=== PATIENT | male | born 1965 | race Caucasian/White ===

== ENCOUNTER → 2020-10-17 09:39 | Outpatient (BNVA) | payer OTHER, SELFPAY | PROVIDERS: Family Provider Family Medicine; PCP Family Medicine; Visit Provider Nurse Practitioner Family | DX: Z12.5 Encounter for screening for malignant neoplasm of prostate (principal); E78.1 Pure hyperglyceridemia; Z12.11 Encounter for screening for malignant neoplasm of colon; N52.9 Male erectile dysfunction, unspecified; Z00.00 Encounter for general adult medical examination without abnormal findings | CPT/HCPCS: 80053; 80061; 85025; G0103 ==

== ENCOUNTER 2021-03-26 08:49 | Day surgery (SDC) | payer OTHER, SELFPAY ==
--- NOTE | 2021-03-26 09:16 | ANES.PREANE2 ---
Pre-Anesthetic Assessment Pre-Anesthetic Assessment: Height/Weight: Height 1.71 m Proposed Procedure: Operation Date: 03/26/21 10:30 Proposed Procedures p Colonoscopy 96798 Z12.11(Not Applicable) - Ravin Au MD Was Beta Deena taken within 24 hours: N/A Was Clonidine taken within 24 hours: N/A Social: Social History: No alcohol and No tobacco Exam: Pre-Anes Outpt Exam: alert, oriented x 3, clear to auscultation bilaterally and regular rate & rhythm Airway: Submandibular: WNL Cervical ROM: WNL MP: 2 Dentition: Full History/ROS: No significant history except as noted Metabolic: Metabolic: Hyperlipidemia Anesthetic Plan: ASA status: 2 Anesthesia: MAC Risk of > 500 ml blood loss (7ml/kg in children): No PFSH Anesthesia PFSH: Family History Mother Cancer Father Diabetes Social History Smoking and tobacco status: never smoked Second hand smoke exposure: No Smoking risk assessment/counseling performed?: No Alcohol intake: never Desire information about alcohol rehabilitation?: No Counseling given: No Desire information about substance/drug rehabilitation?: No Counseling given: No Adopted: No Caregiver/support person: No Lives independently: Yes Household members: spouse Housing: House Marital status: Number of children: 7 Highest education level completed: Associate Degree: Academic Program service: Yes Current occupational status: employed Pets and animals: No History of recent travel: No Data Anesthesia Cardiac Studies: No Data to Display
[2021-03-26 10:11] VITALS: BP 124/95; PULSE 56; RESP 18; TEMP 36.2; O2SAT 100; BMI 25.7
[2021-03-26] MEDS: sodium chloride 0.9% 1,000 ML 30 ML IV (10:17)
--- NOTE | 2021-03-26 10:40 | W.PM.OPSFHP ---
Same Day Surgery H&P Indication for Procedure/HPI DATE OF PROCEDURE: March 26, 2021 CHIEF COMPLAINT/INDICATIONFOR SURGICAL PROCEDURE: Screening colonoscopy PREOP DIAGNOSIS: Screening colonoscopy PLANNED PROCEDRUE: Operation Date: 03/26/21 10:30 Proposed Procedures p Colonoscopy 39882 Z12.11(Not Applicable) - Ravin Au MD This is a pleasant 55 years old gentleman referred to my practice for screening colonoscopy, patient never had a colonoscopy before and denies any bleeding per rectum or colon cancer history. ROS All systems have been reviewed negative except as per the above or per problem list Medications/Allergies* Home Medications Medication Instructions Recorded Confirmed Type multivitamin [Multi-Day] 1 tab PO DAILY 03/26/21 03/26/21 History Allergies/Adverse Reactions Allergy/AdvReac Type Severity Reaction Status Date / Time Iodinated Contrast Media Allergy Severe Burning, Verified 03/26/21 10:41 vomiting, and heart rate increase Current Medications: Generic Name Dose Route Start Last Admin Trade Name Freq PRN Reason Stop Dose Admin Sodium Chloride 1,000 mls @ 30 mls/hr 03/26/21 09:00 03/26/21 10:17 Sodium Chloride 0.9% IV 03/27/21 08:59 30 mls/hr .Q24H JENNIFER Administration Pertinent History/Comorbid Conditions* Family History (Updated 10/17/20 @ 09:08 by Annika Bertrand LPN) Diabetes Father Cancer Mother Social History Smoking and tobacco status: never smoked Second hand smoke exposure: No Smoking risk assessment/counseling performed?: No Alcohol intake: never Desire information about alcohol rehabilitation?: No Counseling given: No Desire information about substance/drug rehabilitation?: No Counseling given: No Adopted: No Caregiver/support person: No Lives independently: Yes Household members: spouse Housing: House Marital status: Number of children: 7 Highest education level completed: Associate Degree: Academic Program service: Yes Current occupational status: employed Pets and animals: No History of recent travel: No Pertinent Exam Findings alert, oriented x 3, clear to auscultation bilaterally, regular rate & rhythm and procedure specific exam findings (Abdominal examination nontender nondistended soft) Recommendations Surgery/Procedure today (Colonoscopy) Other Plans: Plan of care; After thorough history and physical examination and reviewing the chart, plan to perform screening colonoscopy. I discussed with the patient in details the risks,benefits,alternatives and indications.The risk of aspiration, bleeding, soft tissue injury, perforation of the colon and other potential concomitant complications were explained to the patient in details,also the potential need for Laproscoy/Laparotomy to repair any related complications including but not limited to colectomy and or Closotomy.The patient understood this well and did agree to proceed. Rationale was carefully and clearly discussed with the patient.Appropriate informed consent have been reviewed and signed All questions have been answered and all concerns have been addressed to patient's satisfaction. Verbal and written Instructions were given to the patient for colonoscopy prep Coding Level of Care Code Acute Customer Development Manager for Susi Nguyen
[2021-03-26 10:59] VITALS: BP 91/66; PULSE 67; RESP 16; TEMP 36.9; O2SAT 95
[2021-03-26 11:19] VITALS: BP 99/71; PULSE 61; RESP 18; O2SAT 97
--- NOTE | 2021-03-26 17:08 | ANE.PACU2 ---
Inpatient post-anesthesia follow up: Airway intact: Yes Vital signs: Temperature 98.5 F Pulse Rate 61 Respiratory Rate 18 Blood Pressure 99/71 Pulse Oximetry 97 Oxygen Delivery Me thod Room Air Oxygen Flow Rate Fraction of Inspir ed Oxygen Hydration adequate: Yes Nausea and vomiting: No Pain level: 1 Mental status: Baseline
== END 2021-03-26 11:30 | disposition home or self-care (01) ==
PROVIDERS: PCP Nurse Practitioner Family; Visit Provider Surgery
PROC: 0DJD8ZZ Inspection of Lower Intestinal Tract, Via Natural or Artificial Opening Endoscopic (ICD-10-PCS; CPT 45378; principal; 2021-03-26 10:30)
DX: Z12.11 Encounter for screening for malignant neoplasm of colon (principal); Z83.3 Family history of diabetes mellitus
CPT/HCPCS: 45378; 96360; J2704; J7030

== ENCOUNTER → 2021-06-30 09:12 | Outpatient (BNVA) | payer OTHER, SELFPAY | PROVIDERS: PCP Nurse Practitioner Family; Visit Provider Nurse Practitioner Family | DX: M79.671 Pain in right foot; M79.672 Pain in left foot; R10.32 Left lower quadrant pain | CPT/HCPCS: 80053; 85025; 86618; 86666; 86757 ==

== ENCOUNTER → 2021-10-27 08:26 | Outpatient (BNVA) | payer OTHER, SELFPAY | PROVIDERS: PCP Nurse Practitioner Family; Referring Provider Nurse Practitioner Family; Visit Provider Podiatrist Foot & Ankle Surgery | DX: M19.071 Primary osteoarthritis, right ankle and foot (principal); M79.671 Pain in right foot | CPT/HCPCS: 73630 ==

== ENCOUNTER 2022-02-17 11:34 | Outpatient (CLI) | payer OTHER, SELFPAY | END 2022-02-17 11:35 | disposition home or self-care (01) | LOC: SPT 12:09 | PROVIDERS: PCP Nurse Practitioner Family; Visit Provider Podiatrist Foot & Ankle Surgery | DX: Z46.89 Encounter for fitting and adjustment of other specified devices (principal); M72.2 Plantar fascial fibromatosis; M20.21 Hallux rigidus, right foot | CPT/HCPCS: 97760; L3030 ==

== ENCOUNTER → 2022-03-10 08:34 | Outpatient (BNVA) | payer OTHER, SELFPAY | PROVIDERS: PCP Nurse Practitioner Family; Visit Provider Nurse Practitioner Family | DX: E78.1 Pure hyperglyceridemia (principal) | CPT/HCPCS: 80053; 80061; 85025 ==

== ENCOUNTER → 2022-10-27 10:21 | Outpatient (BNVA) | payer OTHER, SELFPAY | PROVIDERS: PCP Nurse Practitioner Family; Visit Provider Nurse Practitioner Family | DX: E78.1 Pure hyperglyceridemia (principal); N52.9 Male erectile dysfunction, unspecified; R05.3 Chronic cough | CPT/HCPCS: 71046 ==

== ENCOUNTER → 2022-11-16 09:13 | Outpatient (BNVA) | payer OTHER, SELFPAY | PROVIDERS: PCP Nurse Practitioner Family; Visit Provider Nurse Practitioner Family | DX: M25.442 Effusion, left hand (principal) | CPT/HCPCS: 73130 ==

== ENCOUNTER → 2023-02-19 08:03 | Outpatient (BNVA) | payer OTHER, SELFPAY | PROVIDERS: PCP Clinical Nurse Specialist Adult Health; Visit Provider Clinical Nurse Specialist Adult Health | DX: Z00.00 Encounter for general adult medical examination without abnormal findings (principal); E78.1 Pure hyperglyceridemia; N52.9 Male erectile dysfunction, unspecified; L98.9 Disorder of the skin and subcutaneous tissue, unspecified | CPT/HCPCS: 80053; 80061; 84443; 85025 ==

== ENCOUNTER → 2023-07-27 09:15 | Outpatient (BNVA) | payer OTHER, SELFPAY | PROVIDERS: PCP Clinical Nurse Specialist Adult Health; Visit Provider Student in an Organized Health Care Education/Training Program | DX: M25.561 Pain in right knee (principal); G89.29 Other chronic pain | CPT/HCPCS: 73560; 73565 ==

== ENCOUNTER 2023-10-07 19:50 | Emergency (ER) | payer OTHER, SELFPAY ==
[2023-10-07 19:51] VITALS: BP 132/91; PULSE 72; RESP 18; TEMP 37.6; O2SAT 92; BMI 27.1
[2023-10-07 19:56] VITALS: BP 118/71; PULSE 73; RESP 14; O2SAT 93
--- NOTE | 2023-10-07 19:59 | W.ED.BACK ---
HPI - Back Pain/Injury General: Chief Complaint: Back Pain/Injury Stated Complaint: Lower back pain Time Seen by Provider: 10/07/23 19:59 History of Present Illness: 58-year-old male patient comes in today with low back pain for the last 2 to 3 days. Patient reports his back was bothering him yesterday morning and he worked outside a little bit but not any heavy lifting or labor. Today when patient woke up his he was stiff in his lower back and could not move. Patient is having difficulty getting up out of bed and walking. Patient appears nontoxic. Patient appears in moderate pain. Review of Systems General: Reports: 10 or more systems reviewed and unremarkable except in HPI and below Musc: Reports: back pain PFSH ED PFSH: Medical History (Updated 10/07/23 @ 21:13 by ARCHANA Osborne) Right knee DJD Screen for colon cancer 2021, clear Hx of hyperlipidemia Surgical History Hx of knee surgery left Hx of tonsillectomy Family History Mother Cancer Father Diabetes Social History Smoking and tobacco/nicotine status: never used tobacco/nicotine Second hand smoke exposure: No Alcohol intake: never Substance/Drug Use: never Adopted: No Caregiver/support person: No Lives independently: Yes Household members: spouse Housing: House Marital status: Number of children: 7 Highest education level completed: Associate Degree: Academic Program service: Yes Current occupational status: employed Pets and animals: No Current gender identity: Male Physical Exam Const: COMMON NORMALS: alert HENMT: COMMON NORMALS: normocephalic HEAD & SCALP: normocephalic Neck/C-Spine: COMMON NORMALS: full ROM Resp: COMMON NORMALS: normal respiratory effort and clear to auscultation bilaterally AUSCULTATION: clear to auscultation bilaterally Cardio: COMMON NORMALS: regular rate and regular rhythm RATE: regular rate RHYTHM: regular rhythm GI: COMMON NORMALS: non-tender Back/Pelvis: LUMBAR SPINE/LOWER BACK: Yes lumbar spinal tenderness Lumbar spinal tenderness location: L5 and Yes paraspinal muscle tenderness Lumbar paraspinal muscle tenderness: left Extremity: COMMON NORMALS: normal to inspection Neuro: SENSORIUM/ORIENTATION: Yes alert Skin: COMMON NORMALS: turgor normal GENERAL SKIN EXAM: turgor normal Course Vital Signs: Vital signs: Vital Signs Temperature 99.7 F H 10/07/23 19:51 Pulse Rate 71 10/07/23 20:58 Respiratory Rate 15 10/07/23 20:58 Blood Pressure 126/82 10/07/23 21:10 Pulse Oximetry 94 10/07/23 21:10 Oxygen Delivery Me thod Room Air 10/07/23 21:10 MDM - Back Pain/Injury Medical Decision Making 58-year-old male patient comes in today with complaints of back pain and stiffness. Patient reports difficulty with ambulation due to the low back pain. Patient appears nontoxic. Patient appears in no acute distress. Patient does appear in moderate to severe pain. On exam abdomen soft nontender. Lungs clear to auscultation. Vital signs are normal except for temperature of 99.7. Distal pulses and sensation are intact. Differential diagnosis includes not limited to intervertebral disc disease, facet arthritis, discitis, lumbar strain. CBC and CMP were unremarkable. CT of the lumbar spine noted a sclerotic lesion to the lumbar 2 vertebrae atypical for degenerative sclerosis but raising concerns for neoplastic lesion including metastasis recommending PSA and bone scan. I reviewed this abnormality with patient. I have placed a consult and referral to Dr. Baltazar's office the area oncologist. Also noted on the CT scan was multilevel degenerative findings with some neuronal foraminal narrowing at L4-L5. Patient reported understanding. And will follow-up with primary care and environmental remediation specialist as ordered. Labs 10/07/23 20:23 10/07/23 20:23 Radiology Impressions Lumbar Spine CT 10/07/23 20:05 IMPRESSION: 1. Sclerosis within the anteroinferior aspect of the L2 vertebral body, atypical appearance for degenerative sclerosis and raising concern for neoplastic lesion including metastasis. Recommend correlation with PSA and bone scan. 2. Multilevel degenerative findings as above with severe left neural foraminal narrowing at L4-L5. Laboratory Results WBC 8.36 10^3/uL (3.29-11.43) 10/07/23 20:23 RBC 4.58 10^6/uL (3.85-5.65) 10/07/23 20:23 Hgb 14.30 g/dL (11.27-16.99) 10/07/23 20: Hct 40.1 % (37-53) 10/07/23 20: MCV 87.6 fl (82-101) 10/07/23 20: MCH 31.2 pg (27-33) 10/07/23 20: MCHC 35.7 g/dL (30-55) 10/07/23 20: RDW 12.8 % (12.1-15.1) 10/07/23 20: Plt Count 206 10^3/cmm (157-399) 10/07/23 20: MPV 10.1 fL (7.4-10.4) 10/07/23 20: Neut % (Auto) 73.0 % 10/07/23 20: Lymph % (Auto) 16.0 % 10/07/23 20: [place] % (Auto) 9.8 % 10/07/23 20: Eos % (Auto) 0.4 % 10/07/23 20: Baso % (Auto) 0.4 % 10/07/23 20: Neut # (Auto) 6.11 10^3/uL (1.8-7.7) 10/07/23 20: Lymph # (Auto) 1.3 10^3/uL (0.8-4.8) 10/07/23 20: [place] # (Auto) 0.8 10^3/uL (0.2-0.9) 10/07/23 20: Eos # (Auto) 0.0 10^3/uL (0.0-0.8) 10/07/23 20: Baso # (Auto) 0.0 10^3/uL (0.0-0.1) 10/07/23 20: Nucleated RBC % (auto) 0 % 10/07/23: Nucleated RBCs # 0.0 /100WBC 10/07/23 20: ESR < 1 mm/hr (0-10) 10/07/23 20:23 Sodium 144 mmol/L (136-145) 10/07/23 20:23 Potassium 3.8 mmol/L (3.5-5.1) 10/07/23 20: Chloride 106 mmol/L (98-107) 01/25/24 20:23 Carbon Dioxide 25 mmol/L (22-29) 10/07/23 20:23 Anion Gap 16.8 (5-19) 10/07/23 20:23 BUN 24 mg/dL (6-20) H 10/07/23 20:23 Creatinine 1.3 mg/dL (0.7-1.2) H 10/07/23 20:23 GFR Calculation 56.7 mL/min (90-130) L 10/07/23 20:23 Glucose 115 mg/dL (65-115) 10/07/23 20:23 Calculated Osmolality 303 mOsm/kg (285-295) H 10/07/23 20:23 Calcium 9.8 mg/dL (8.5-10.5) 10/07/23 20:23 Total Bilirubin 0.5 mg/dL (0.15-1.2) 10/07/23 20:23 AST 22 U/L (0-40) 10/07/23 20:23 ALT 25 U/L (0-41) 10/07/23 20:23 Alkaline Phosphatase 61 U/L (40-130) 10/07/23 20:23 C-Reactive Protein 23.4 mg/L (0.0-4.9) H 10/07/23 20:23 Total Protein 6.7 g/dL (6.6-8.7) 10/07/23 20:23 Albumin 4.4 g/dL (3.5-5.2) 10/07/23 20:23 Globulin 2.3 g/dL (1.3-4.6) 10/07/23 20:23 All radiology interpretation(s) finalized by discharge Discharge Plan Discharge Patient Disposition: Home Clinical Impression: Lumbar radiculopathy, Lesion of lumbosacral vertebra Condition: Stable Prescriptions: New celecoxib 200 mg capsule 200 mg PO BID Qty: 20 0RF prednisone 20 mg tablet 20 mg PO BID 5 Days Qty: 10 0RF hydrocodone-acetaminophen 5-325 mg tablet 1 tab PO Q6H PRN (Reason: pain) Qty: 10 0RF No Action albuterol sulfate 90 mcg/actuation HFA aerosol inhaler 2 puff inhalation QID PRN (Reason: shortness of breath or wheezing) Qty: 6.7 0RF fluticasone propionate [Flovent HFA] 110 mcg/actuation HFA aerosol inhaler 2 puff inhalation BID Qty: 12 2RF loratadine [Claritin] 10 mg tablet 10 mg PO DAILY fluticasone propionate 50 mcg/actuation spray,suspension 1 spray intranasal DAILY Rx Instructions: administer into each nostril sildenafil [Viagra] 100 mg tablet 100 mg PO DAILY PRN (Reason: sexual activity) 90 Days Qty: 30 3RF fenofibrate nanocrystallized [Tricor] 145 mg tablet 145 mg PO DAILY 90 Days Qty: 90 3RF omeprazole magnesium [Prilosec OTC] 20 mg tablet,delayed release (DR/EC) 20 mg PO DAILY Qty: 30 0RF naproxen sodium [Flanax (naproxen)] 220 mg tablet 220 mg PO BID PRN (Reason: pain) Qty: 60 0RF (DME) sole supports See Rx Instructions .Route .MEDSUPPLY Qty: 1 0RF Rx Instructions: As directed multivitamin Tablet 1 tab PO DAILY Discharge Orders: Discharge ED (Routine); Ordered 10/07/23 Ordered By: Abhishek Hurt Referrals: Flako Flower [facility]OCIATE [Primary Care Provider] - Discharge Diet: Usual diet Discharge Activity: Increase activity as tolerated Patient Instructions: Acute Low Back Pain (ED) Activity Restrictions/Additional Instructions: Follow-up with primary care for further evaluation and treatment of low back pain and abnormal CT scan. I have placed to case management referrals for you. [address] Baltazar our oncologist to review the CT report and make suggestions for further evaluation of the lesion that was noted on your lumbar vertebra #2. I have also made a referral to Dr. Robledo our orthopedic quality control specialist for further evaluation relating that foraminal stenosis of your low back. Take medications as directed for pain and inflammation. Drink plenty of water and fluids with medication. Return to ED for worsening symptoms such as high fever, inability to hold fluids down, inability to control your bladder or bowel. Coding Level of Care Code ED Assembler Plastic Boat for Susi Nguyen
--- NOTE | 2023-10-07 20:05 | CTR_ITS ---
PROCEDURE INFORMATION: Exam: CT Lumbar Spine Without Contrast Exam date and time: 10/07/2023 8:12 PM Age: 58 years old Clinical indication: Low back pain; Additional info: Severe pain, no injury TECHNIQUE: Imaging protocol: Computed tomography of the lumbar spine without contrast. Radiation optimization: All CT scans at this facility use at least one of these dose optimization techniques: automated exposure control; mA and/or kV adjustment per patient size (includes targeted exams where dose is matched to clinical indication); or iterative reconstruction. COMPARISON: No relevant prior studies available. RADIATION DOSE METRICS: Total DLP (mGy-cm): 644 FINDINGS: Bones/joints: Sclerosis within the anteroinferior aspect of the L2 vertebral body. Mild bilateral sacroiliac joint osteoarthrosis. No acute fracture or malalignment of the lumbar spine. Vertebral body heights are maintained. Mild multilevel degenerative disc disease primarily within endplate osteophyte formation. Mild central canal stenosis at L4-L5 secondary to posterior disc osteophyte complex and ligamentum flavum hypertrophy. Severe left neural foraminal narrowing at L4-L5. Moderate left neural foraminal narrowing at L5-S1. Soft tissues: Subtle regional soft tissue swelling location of sclerotic lesion at L2.. CT/CT lumbar spine wo con* [id number] IMPRESSION: 1. Sclerosis within the anteroinferior aspect of the L2 vertebral body, atypical appearance for degenerative sclerosis and raising concern for neoplastic lesion including metastasis. Recommend correlation with PSA and bone scan. 2. Multilevel degenerative findings as above with severe left neural foraminal narrowing at L4-L5.
[2023-10-07] MEDS: dexamethasone 10 mg/mL INJ IVP (20:21)
[2023-10-07 20:31] LABS: Basophils % 0.4 %; Eosinophils % 0.4 %; Hematocrit 40.1 % (37-53); Lymphocytes # 1.3 10^3/uL (0.8-4.8); Mean Corpuscular HGB Conc 35.7 g/dL (30-55); Mean Corpuscular Hemoglobin 31.2 pg (27-33); Mean Corpuscular Volume 87.6 fl (82-101); Mean Platelet Volume 10.1 fL (7.4-10.4); Monocytes # 0.8 10^3/uL (0.2-0.9); Monocytes % 9.8 %; Neutrophils # 6.11 10^3/uL (1.8-7.7); Nucleated Red Blood Cells % 0 %; Platelet Count 206 10^3/cmm (157-399); Red Blood Count 4.58 10^6/uL (3.85-5.65); Red Cell Distribution Width 12.8 % (12.1-15.1); White Blood Count 8.36 10^3/uL (3.29-11.43)
[2023-10-07 20:34] LABS: Erythrocyte Sedimentation Rate < 1 mm/hr (0-10)
[2023-10-07 20:55] LABS: Alanine Aminotransferase 25 U/L (0-41); Albumin Level 4.4 g/dL (3.5-5.2); Alkaline Phosphatase 61 U/L (40-130); Anion Gap 16.8 (5-19); Aspartate Amino Transferase 22 U/L (0-40); Blood Urea Nitrogen 24 mg/dL (6-20); C Reactive Protein 23.4 mg/L (0.0-4.9); Calcium 9.8 mg/dL (8.5-10.5); Carbon Dioxide 25 mmol/L (22-29); Chloride 106 mmol/L (98-107); Globulin 2.3 g/dL (1.3-4.6); Glomerular Filtration Rate 56.7 mL/min (90-130); Glucose 115 mg/dL (65-115); Osmolality Calculated 303 mOsm/kg (285-295); Potassium 3.8 mmol/L (3.5-5.1); Sodium 144 mmol/L (136-145); Total Bilirubin 0.5 mg/dL (0.15-1.2); Total Protein 6.7 g/dL (6.6-8.7)
[2023-10-07 20:58] VITALS: BP 121/77; PULSE 71; RESP 15; O2SAT 94
[2023-10-07 21:10] VITALS: BP 126/82; O2SAT 94
[2023-10-07 21:29] VITALS: BP 148/96; PULSE 79; O2SAT 95
[2023-10-07] MEDS: HYDROcodone-acetaminophen 7.5-325 mg Tablet 1 TAB PO (21:39)
[2023-10-07 21:43] LABS: Prostate Specific Antigen 0.562 ng/mL (0-4)
--- NOTE | 2023-10-08 01:30 | DCPLANNER ---
Message sent to Oncology for a follow up possible metastatic lesion-Spine
--- NOTE | 2023-10-08 01:33 | DCPLANNER ---
Message sent to Ortho for a referral - lumbar radiculopathy-
== END 2023-10-07 21:43 | disposition home or self-care (01) ==
PROVIDERS: Emergency Provider Nurse Practitioner Family; PCP Clinical Nurse Specialist Adult Health
DX: M54.16 Radiculopathy, lumbar region (principal); M48.8X7 Other specified spondylopathies, lumbosacral region; E78.5 Hyperlipidemia, unspecified
CPT/HCPCS: 72131; 80053; 84153; 85025; 85651; 86140; 96374; 99285; J1100

== ENCOUNTER 2023-10-14 14:22 | Outpatient (CLI) | payer OTHER, SELFPAY ==
--- NOTE | 2023-10-14 14:30 | MR_ITS ---
WS: [id number] MRI LUMBAR SPINE WITH CONTRAST TECHNIQUE: Sagittal T1, T2 and STIR imaging. Axial T1 and T2 imaging. Post gadolinium imaging was obt ained. CLINICAL INFORMATION: ABNORMAL CT WITH POSSIBLE SCLEROTIC LESION COMPARISON: CT 10/07/2023 FINDINGS: Mild lumbar curve. No acute compression. No high-grade central canal stenosis. Again seen is the scle rotic lesion previously described on the CT anterior L2 vertebral body. This demonstrates mild edema and enhancement most compatible with degenerative endplate type change. This abuts the anterior endpl ate in a symmetric fashion and adjacent disc space. Small amount of surrounding inflammation likely d egenerative/inflammatory. Metastatic disease less likely. Anterior hypertrophic changes at this level. L1-L2: Normal. L2-L3: Mild disc bulging with slight effacement of the ventral thecal sac. Moderate facet arthropathy . Spinal canal and foramen are patent. L3-L4: Mild annular bulging. Moderate facet arthropathy. Slight narrowing LEFT subarticular recess. S soila canal and foramen are patent. L4-L5: Mild annular bulging. Slight effacement of the ventral thecal sac. Slight impingement traversi ng L5 nerve roots. Moderate facet arthropathy. Mild LEFT and no significant RIGHT foraminal narrowing . L5-S1: Mild disc bulging with slight impingement traversing LEFT S1 nerve root. Spinal canal is paten t. Mild facet arthropathy. Foramen are patent. Small bilateral renal cysts. Visualized pelvic bony structures: Normal. Paravertebral soft tissues: Normal. IMPRESSION: 1. Previously described lesion anterior endplate L2 is most likely degenerative as it abuts the ante rior endplate and disc space. Metastatic disease less likely. Associated enhancement likely reactive. If clinical suspicion or persistent concern for metastatic disease, then recommend bone scan in fur ther evaluation of the bony structures. 2. Mild annular bulging L2-3 and L3-4 with slight narrowing of the subarticular recess. No high-grad e central canal stenosis. 3. Disc bulge L4-5 with slight impingement traversing L5 nerve roots bilaterally. 4. Mild LEFT L4-5 foraminal narrowing. 5. Mild annular bulging L5-S1 slightly impinges the LEFT S1 nerve root. 6. Moderate facet arthropathy L3-L4 and L4-L5.
[2023-10-14] MEDS: gadobenate dimeglumine 20 mL vial IV (15:24)
== END 2023-10-14 14:23 | disposition home or self-care (01) ==
LOC: RAD 14:23
PROVIDERS: PCP Clinical Nurse Specialist Adult Health; Visit Provider Clinical Nurse Specialist Adult Health
DX: M89.9 Disorder of bone, unspecified (principal); R93.7 Abnormal findings on diagnostic imaging of other parts of musculoskeletal system; M51.37 Other intervertebral disc degeneration, lumbosacral region; M48.07 Spinal stenosis, lumbosacral region; M47.817 Spondylosis without myelopathy or radiculopathy, lumbosacral region
CPT/HCPCS: 72100; 72158; A9577

== ENCOUNTER → 2023-10-19 11:01 | Outpatient (BNVA) | payer OTHER, SELFPAY | PROVIDERS: PCP Clinical Nurse Specialist Adult Health; Visit Provider Orthopaedic Surgery | DX: M54.50 Low back pain, unspecified (principal) | CPT/HCPCS: 99214 ==

== ENCOUNTER → 2023-11-15 10:21 | Outpatient (BNVA) | payer OTHER, SELFPAY | PROVIDERS: PCP Clinical Nurse Specialist Adult Health; Visit Provider Anesthesiology Pain Medicine | DX: R68.89 Other general symptoms and signs (principal); M51.16 Intervertebral disc disorders with radiculopathy, lumbar region; M47.816 Spondylosis without myelopathy or radiculopathy, lumbar region | CPT/HCPCS: 20553; 99204; J1030; J3490 ==

== ENCOUNTER → 2023-12-06 12:17 | Outpatient (BNVA) | payer OTHER, SELFPAY | PROVIDERS: PCP Clinical Nurse Specialist Adult Health; Visit Provider Anesthesiology Pain Medicine | DX: M54.16 Radiculopathy, lumbar region (principal) | CPT/HCPCS: 64483; 64484; J1100; J3490 ==

== ENCOUNTER → 2023-12-28 09:58 | Outpatient (BNVA) | payer OTHER, SELFPAY | PROVIDERS: PCP Clinical Nurse Specialist Adult Health; Visit Provider Anesthesiology Pain Medicine | DX: Z03.89 Encounter for observation for other suspected diseases and conditions ruled out (principal); M51.16 Intervertebral disc disorders with radiculopathy, lumbar region; M47.816 Spondylosis without myelopathy or radiculopathy, lumbar region; M48.061 Spinal stenosis, lumbar region without neurogenic claudication | CPT/HCPCS: 99215 ==

== ENCOUNTER 2024-01-20 08:16 | Outpatient (CLI) | payer OTHER, SELFPAY ==
--- NOTE | 2024-01-20 08:00 | NM_ITS ---
WS: [id number] NUCLEAR MEDICINE WHOLE BODY BONE SCAN HISTORY: Z03.89 - Encounter for observation for other suspected di... COMPARISON: MRI lumbar spine 10/14/2023 TECHNIQUE: The patient was injected with 22.1 mCi of Technetium 99m HDP and serial whole-body scintig oscar have been performed with anterior and posterior images. Moderate increased uptake throughout the L2 vertebral body. This corresponds to the MRI findings. The extent of involvement appears more significant as compared to the MRI of 10/14/2023. There are no david tional suspicious lesions throughout the spine or ribs. Advanced degenerative changes at the AC joints and knee joints. Marked increase uptake involving the RIGHT first metatarsal head. Additional focal area of increased uptake in the cervical spine on the R IGHT involving facet joint, probably C5. Soft tissue and renal uptake is normal. NM/NM bone scan whole body* [id number] IMPRESSION: 1. Diffuse uptake within the L2 vertebral body. This is the vertebral body pre viously described on MRI and radiograph as abnormal. The extent of involvement appears more significant by bone scan imaging than on the MRI. This may be due to progression of fracture. If pain is continuing metastatic disease or mild os teomyelitis should be considered. 2. There are no additional areas of increased uptake in the bony skeleton whic h would suggest metastatic disease. Recommendation: As the involvement of L2 appears more diffuse than expected in correlation with the radiograph and MRI, recommend short-term imaging follow-up if patient's pain is continuing. Probably the most helpful reevaluation would be MRI lumbar spine with and without contrast. Prior MRI was 3 months ago. If p atient's pain is persisting it may be of benefit within the next few weeks to r epeat the MRI.
== END 2024-01-20 08:17 | disposition home or self-care (01) ==
LOC: RAD 08:17
PROVIDERS: PCP Clinical Nurse Specialist Adult Health; Visit Provider Anesthesiology Pain Medicine
DX: Z03.89 Encounter for observation for other suspected diseases and conditions ruled out (principal)
CPT/HCPCS: 78306; A9561

== ENCOUNTER → 2024-02-03 13:28 | Outpatient (BNVA) | payer OTHER, SELFPAY | PROVIDERS: PCP Clinical Nurse Specialist Adult Health; Visit Provider Anesthesiology Pain Medicine | DX: M47.816 Spondylosis without myelopathy or radiculopathy, lumbar region (principal) | CPT/HCPCS: 64493; 64494; 64495; J3490 ==

== ENCOUNTER → 2024-02-09 10:44 | Outpatient (BNVA) | payer OTHER, SELFPAY | PROVIDERS: PCP Clinical Nurse Specialist Adult Health; Visit Provider Anesthesiology Pain Medicine | DX: M51.16 Intervertebral disc disorders with radiculopathy, lumbar region; M47.816 Spondylosis without myelopathy or radiculopathy, lumbar region | CPT/HCPCS: 99214 ==

== ENCOUNTER → 2024-02-14 13:24 | Outpatient (BNVA) | payer OTHER, SELFPAY | PROVIDERS: PCP Clinical Nurse Specialist Adult Health; Visit Provider Anesthesiology Pain Medicine | DX: M47.816 Spondylosis without myelopathy or radiculopathy, lumbar region (principal) | CPT/HCPCS: 64635; 64636; J1010 ==

== ENCOUNTER → 2024-05-26 09:26 | Outpatient (BNVA) | payer OTHER, SELFPAY | PROVIDERS: PCP Clinical Nurse Specialist Adult Health; Visit Provider Student in an Organized Health Care Education/Training Program | DX: M25.561 Pain in right knee (principal); G89.29 Other chronic pain; M17.11 Unilateral primary osteoarthritis, right knee | CPT/HCPCS: 73560; 73565 ==

== ENCOUNTER → 2024-08-21 08:03 | Outpatient (BNVA) | payer OTHER, SELFPAY | PROVIDERS: PCP Clinical Nurse Specialist Adult Health; Visit Provider Clinical Nurse Specialist Adult Health | DX: N18.31 Chronic kidney disease, stage 3a (principal); N52.9 Male erectile dysfunction, unspecified; E78.1 Pure hyperglyceridemia | CPT/HCPCS: 80053; 80061; 84443; 85025 ==

== ENCOUNTER → 2024-11-03 15:17 | Outpatient (BNVA) | payer OTHER, SELFPAY | PROVIDERS: PCP Clinical Nurse Specialist Adult Health; Visit Provider Physician Assistant | DX: M25.561 Pain in right knee (principal); G89.29 Other chronic pain; M17.11 Unilateral primary osteoarthritis, right knee | CPT/HCPCS: 73560; 73565 ==

== ENCOUNTER → 2025-02-16 10:57 | Outpatient (BNVA) | payer OTHER, SELFPAY | PROVIDERS: PCP Clinical Nurse Specialist Adult Health; Visit Provider Physician Assistant | DX: M25.562 Pain in left knee (principal); M17.12 Unilateral primary osteoarthritis, left knee; M25.561 Pain in right knee; G89.29 Other chronic pain | CPT/HCPCS: 73560; 73565 ==

== ENCOUNTER 2025-07-27 08:25 | Outpatient (CLI) | payer OTHER, SELFPAY ==
[2025-07-27 08:53] LABS: Hematocrit 42.4 % (37-53); Hemoglobin 14.90 g/dL (11.27-16.99); Mean Corpuscular HGB Conc 35.1 g/dL (30-55); Mean Corpuscular Hemoglobin 31.3 pg (27-33); Mean Corpuscular Volume 89.1 fl (82-101); Nucleated Red Blood Cells % 0 %; Platelet Count 221 10^3/cmm (157-399); Red Blood Count 4.76 10^6/uL (3.85-5.65); White Blood Count 3.46 10^3/uL (3.29-11.43)
[2025-07-27 08:54] LABS: Glucose Urine UA Negative (Normal); Nitrate Urine Negative (Negative); Specific Gravity, Urine 1.012 (1.005-1.030)
[2025-07-27 09:02] LABS: Add Urine Microscopic? YES
[2025-07-27 09:30] LABS: Alanine Aminotransferase 29 U/L (0-41); Albumin Level 4.5 g/dL (3.5-5.2); Alkaline Phosphatase 63 U/L (40-130); Anion Gap 13.9 (5-19); Aspartate Amino Transferase 32 U/L (0-40); Blood Urea Nitrogen 39 mg/dL (8-23); Calcium 9.5 mg/dL (8.5-10.5); Carbon Dioxide 28 mmol/L (22-29); Chloride 105 mmol/L (98-107); Globulin 2.4 g/dL (1.3-4.6); Glucose 83 mg/dL (65-115); Osmolality Calculated 305 mOsm/kg (285-295); Potassium 3.9 mmol/L (3.5-5.1); Sodium 143 mmol/L (136-145); Total Protein 6.9 g/dL (6.6-8.7)
== END 2025-07-27 08:26 | disposition home or self-care (01) ==
PROVIDERS: PCP Clinical Nurse Specialist Adult Health; Visit Provider Student in an Organized Health Care Education/Training Program
DX: Z01.818 Encounter for other preprocedural examination (principal)
CPT/HCPCS: 36415; 80053; 81001; 85025

== ENCOUNTER 2025-08-10 08:19 | Outpatient (CLI) | payer OTHER, SELFPAY ==
--- NOTE | 2025-08-10 08:30 | CT_ITS ---
WS: [id number] CT RIGHT KNEE, NONCONTRAST [facility] TECHNIQUE: Noncontrast CT of the RIGHT knee to include the RIGHT hip and ankle. CLINICAL INFORMATION: M17.11 - Unilateral primary osteoarthritis, right knee DLP: 1022.[address] scans at [facility] use at least one of these dose optimization techniques: automated exposure control; mA and/or kV adjustment per patient size (includes targeted exams where dose is matched to clinical indication); or iterative reconstruction. FINDINGS: Advanced tricompartmental arthritis RIGHT knee. Hypertrophic patella. Moderate suprapatellar effusion with calcified loose bodies. Hypertrophic changes along the joint line. Vascular calcification. Moderate arthritis sacroiliac joints. Prostate enlargement measuring 4.1 cm. Recommend correlation PSA. CT/CT knee RT [facility] [id number] IMPRESSION: Images obtained for preoperative purposes.
== END 2025-08-10 08:20 | disposition home or self-care (01) ==
LOC: RAD 08:20
PROVIDERS: PCP Clinical Nurse Specialist Adult Health; Visit Provider Student in an Organized Health Care Education/Training Program
DX: M17.11 Unilateral primary osteoarthritis, right knee (principal); M79.4 Hypertrophy of (infrapatellar) fat pad; N40.0 Benign prostatic hyperplasia without lower urinary tract symptoms; M25.461 Effusion, right knee; M23.41 Loose body in knee, right knee; M61.461 Other calcification of muscle, right lower leg
CPT/HCPCS: 73700

== ENCOUNTER → 2025-08-13 10:03 | Outpatient (BNVA) | payer OTHER, SELFPAY | PROVIDERS: PCP Clinical Nurse Specialist Adult Health; Visit Provider Clinical Nurse Specialist Adult Health | DX: Z00.00 Encounter for general adult medical examination without abnormal findings (principal); E78.1 Pure hyperglyceridemia; N18.31 Chronic kidney disease, stage 3a; I12.9 Hypertensive chronic kidney disease with stage 1 through stage 4 chronic kidney disease, or unspecified chronic kidney disease | CPT/HCPCS: 80061; G0103 ==

== ENCOUNTER 2025-08-16 18:29 | Observation (INO) | payer OTHER, SELFPAY ==
[2025-08-16] VITALS (21 sets, daily range): BP systolic 66–137; BP diastolic 37–93; PULSE 52–74; RESP 14–16; TEMP 36.2–36.3; O2SAT 96–100; BMI 25.3
[2025-08-16] MEDS: acetaminophen 1,000 MG/100 ML PIGGYBACK 400 MG IV ×2 (14:09→21:48)
--- NOTE | 2025-08-16 14:18 | SUR.PREOP ---
TORADOL 30mg HELD PER Dr Urbina.
[2025-08-16 14:52] LABS: Hematocrit 47.8 % (37-53); Hemoglobin 16.80 g/dL (11.27-16.99); Mean Corpuscular HGB Conc 35.1 g/dL (30-55); Mean Corpuscular Hemoglobin 30.8 pg (27-33); Mean Corpuscular Volume 87.7 fl (82-101); Nucleated Red Blood Cells % 0 %; Platelet Count 235 10^3/cmm (157-399); Red Blood Count 5.45 10^6/uL (3.85-5.65); White Blood Count 6.18 10^3/uL (3.29-11.43)
[2025-08-16 15:07] LABS: Anion Gap 16.7 (5-19); Blood Urea Nitrogen 33 mg/dL (8-23); Calcium 9.9 mg/dL (8.5-10.5); Carbon Dioxide 26 mmol/L (22-29); Chloride 103 mmol/L (98-107); Glucose 77 mg/dL (65-115); Osmolality Calculated 300 mOsm/kg (285-295); Potassium 3.7 mmol/L (3.5-5.1); Sodium 142 mmol/L (136-145)
--- NOTE | 2025-08-16 15:14 | P.ANESASSM_ITS ---
Pre-Anesthetic Assessment Height/Weight: Height 1.7 m Weight 73.482 kg Temp Pulse Resp BP Pulse Ox O2 Del Method 97.2 F L 58 L 16 131/93 99 Room Air 08/16/25 13:29 08/16/25 13:29 08/16/25 13:29 08/16/25 13:29 08/16/25 13:29 08/16/25 13:34 Operation Date: 08/16/25 14:20 Proposed Procedures p RIGHT Meng Robot Total Knee Arthroplasty(Right) - Hiren Lizarraga DO Familial anesthetic complications: none Was Beta Deena taken within 24 hours: N/A Was Clonidine taken within 24 hours: N/A Last intake: Intake Last Liquid Date 08/16/25 Last Liquid Time 07:50 Last Solid Date 08/15/25 Last Solid Time 20:30 Social No alcohol and No tobacco Exam alert, oriented x 3, clear to auscultation bilaterally and regular rate & rhythm Airway Mallampati: Class II Dentition: full CV/HEM Hypertension Chronic Renal Insufficiency Anesthetic Plan ASA status: 1 Anesthesia: General Risk of > 500 ml blood loss (7ml/kg in children): No Medications/Allergies Home Medications ?Medication ?Instructions ?Recorded ?Confirmed ?Last Taken ?Type fenofibrate nanocrystallized 145 145 mg PO DAILY 90 da ys #90 tabs 08/13/25 08/15/25 08/15/25 Rx mg tablet (Tricor) Allergies Allergy/AdvReac Type Severity Reaction Status Date / Time Iodinated Contrast Media Allergy Severe Burning, Verified 08/15/25 08:56 vomiting, and heart rate increase PFS Anesthesia Medical History (Updated 08/13/25 @ 16:28 by Flako Flower NP) Stage 3a chronic kidney disease (CKD) Erectile dysfunction, unspecified erectile dysfunction type Generalized osteoarthritis Right knee DJD Screen for colon cancer 03/2021, clear Hx of hyperlipidemia Surgical History Hx of knee surgery left Hx of tonsillectomy Family History Mother Cancer Father Diabetes Social History Smoking and tobacco/nicotine status: never used tobacco/nicotine Second hand smoke exposure: No Alcohol intake: never Substance/Drug Use: never Adopted: No Caregiver/support person: No Lives independently: Yes Household members: spouse Housing: House Marital status: Number of children: 7 Highest education level completed: Associate Degree: Academic Program service: Yes Current occupational status: employed Pets and animals: No Current gender identity: Male Data Anesthesia 08/16/25 13:55 08/16/25 13:55 Short CBC 08/16/25 Range/Units 13:55 WBC 6.18 (3.29-11.43) 10^3/uL Hgb 16.80 (11.27-16.99) g/dL Hct 47.8 (37-53) % MCV 87.7 (82-101) fl Plt Count 235 (157-399) 10^3/cmm Neut % (Auto) 69.4 % Neut # (Auto) 4.29 (1.8-7.7) 10^3/uL BMP 08/16/25 13:55 Sodium 142 Potassium 3.7 Chloride 103 Carbon Dioxide 26 Creatinine 1.2 Glucose 77 Calcium 9.9
--- NOTE | 2025-08-16 15:16 | ANES.PROC ---
Anesthesia Procedures Procedure/Date: 08/16/25 Nerve Block ^: Nerve Block 1: Main Anesthesia: spinal anesthesia block Time Out Performed: Yes Consent: requested by attending/covering physician, from patient, from other, risks and benefits reviewed and patient agrees to proceed Laterality: Right Nerve block location: adductor canal (R) Anesthesia monitors applied: pulse oximetry, EKG, BP cuff and oxygen Nerve block position: supine Anesthetic Used: ropivicaine 0.5% (30 ml) and with decadron (4 mg) Ultrasound used to: recognize landmarks, visualize and ID brachial plexus and visualize and ID femerol nerve Nerve Stimulator Used?: No Interscalene/Femoral BLK: 4 stimuplex 21 g needle used for position and inplane approach, visualize local anesthetic spread and no vascular puncture identified Injection: neg aspiration of heme Patient Tolerated Procedure: well Complications: none
--- NOTE | 2025-08-16 15:39 | SUR.PREOP ---
14:45 right leg adducter nerve block performed by Dr Lane using 30ml of 0.5% ropivacaine with decadron 4mg. Pt on presales senior specialist showing NSR. Pt tolerated procedure well
--- NOTE | 2025-08-16 15:40 | W.PM.OPSUD ---
Surgery/Procedure H&P Update DATE OF PROCEDURE: August 16, 2025 DATE H&P PERFORMED: 07/24/25 H&P UPDATE INFORMATION: I have reviewed H&P completed within last 30 days, I have examined patient prior to procedure and No changes to prior documentation CHANGES TO PREVIOUS DOCUMENTATION: Patient has severe right knee degenerative joint disease underwent the preoperative clearance process and cleared the preoperative clearance process no changes to health since last office visit and ready proceed with surgical intervention please refer to preoperative anesthetic evaluation for heart and lung findings. Patient understands the ins and outs of procedure the risk benefits complication alternatives with surgical nonsurgical treatment options. Understanding risk of surgery patient elects proceed with surgical intervention for a right total knee arthroplasty?Meng robotic assisted. All questions answered at this time. PREOP DIAGNOSIS: Right knee DJD PRIMARY INDICATION FOR PROCEDURE: Right knee DJD PLANNED PROCEDURE: Operation Date: 08/16/25 14:20 Proposed Procedures p RIGHT Meng Robot Total Knee Arthroplasty(Right) - Hiren Lizararga DO
[2025-08-16] MEDS: ceFAZolin 2,000 MG in sodium chloride 0.9% (plus) 50 ML 100 MG IV (16:12)
[2025-08-16] MEDS: tranexamic acid 1,000 mg/10mL SDV 1000 MG IV (16:19)
[2025-08-16] MEDS: ROPivacaine 0.2% Premix 100 mL 200 MG INTRA-ARTI (17:08)
[2025-08-16] MEDS: tranexamic acid 1,000 mg/10mL SDV 1000 MG XX (17:11)
--- NOTE | 2025-08-16 18:20 | P.BOP_ITS ---
Date of Procedure: 08/16/25 Surgeon: Hiren Lizarraga DO Treating Plant Supervisor(s): Mirza Lizarraga PA-C Procedure(s) performed: Right total knee arthroplasty?Meng robotic assisted Findings of the procedure(s): Patient underwent procedure as planned without issues or complications taken to recovery in stable condition Estimated blood loss: 25 mL Specimen(s) removed: Tibia femur and patellar bone cuts removed Post-operative diagnosis: Right knee degenerative joint disease
--- NOTE | 2025-08-16 18:21 | P.OP_ITS ---
Operative Report Date of procedure: August 16, 2025 Surgeon: Hiren Lizarraga DO Paper Cone Machine Tender: Mirza Lizarraga PA-C: PA was necessary for assistance in this case with leg positioning retraction and protection of neurovascular structures as well as assistance in implantation wound closure and dressing application. Procedure: Preoperative diagnosis: Right knee degenerative joint disease Post-op diagnosis: Same Procedure done: Right total knee arthroplasty, cemented?robotic assisted Ronen Implants: Noris triathlon size 5 femur CR cemented?Right Noris triathlon size? 4 tibia universal baseplate cemented [place] triathlon symmetric patella size 33 mm Noris triathlon polyethylene 9mm Surgeon: Hiren Lizarraga DO Estimated blood?loss: 25 mL Tourniquet 65min IV fluids: 1000 mL Urine output: 100 mL Complications: None Condition: stable Disposition: floor Brief History: Patient is a 60-year-old male with with chronic?Right knee degenerative joint disease.? Patient has been worked up in the outpatient setting in the orthopedic office at this point time through shared decision making given? [id number] arthritis as well as failed conservative treatment, and pt would?like to proceed with a?Right total knee arthroplasty.? Through shared decision making elected to proceed with surgical intervention for?Right total knee arthroplasty-ronen robotic assisted.? We talked about continued conservative treatment and surgical intervention as far as the risk benefits complications alternatives surgical and nonsurgical treatment options.? At this point time understanding patient risks with surgery he agrees to proceed with surgical intervention.? Once again? risk with surgery include but are not?limited to make it better make it worse blood clot, heart attack, stroke, on the table, infection, injury to nerves or vessels, persistent pain, arthrofibrosis, implant failure.? Understanding these risks patient agrees to proceed with surgical intervention consent was obtained in the preop.? All questions answered. Procedure: Patient was seen and evaluated in the preoperative holding area.? Consent was reviewed and signed with patient with plan for?Right total knee arthroplasty.? All questions answered.? Correct extremity marked.? Patient seen and evaluated by the anesthesia department and once cleared for surgery was taken back to the operative suite.? Patient was placed into a supine position on the OR table.? All bony prominences were well-padded.? Patient was appropriately secured to the bed.? Patient underwent anesthesia per the anesthesia department.? Patient received anesthesia and? Thomas catheter was placed.? A nonsterile tourniquet was applied to the?Right thigh.? At this point in time a final timeout performed.? Patient received appropriate preoperative antibiotics and TXA. Next the?Right?lower extremity was then prepped and draped in standard orthopedic fashion. Esmarch tourniquet was used exsanguinate the?Right?lower extremity.? Tourniquet was insufflated to 250 mmHg. A standard anterior incision was made over midline of the knee.? Sharp scalpel excision through skin and subcutaneous tissue full-thickness skin flaps were ma de.? Fascia was elevated off of the extensor retinaculum was stable with medial parapatellar arthrotomy was then made.? The performed standard sequential releases..? Immediately on entry into the joint patient was found to have severe eburnated bone and tricompartmental arthritic changes noted.? With significant osteophyte formation.? Next the the patella was then stuffed and the knee was then flexed.?? Chantel was placed superiorly around the anterior aspect of the femur this was freed of synovium and I subsequently then placed by 2 femur pins to establish my femur arrays for the Ronen robot.? These were then placed bicortically and? femur array was then appropriately secured with appropriate visualization.? Next attention was turned towards the tibial rays.? These were then drilled dylan carvalho bicortically in parallel fashion and intraincisional.? I then placed my guide as well as my tibial array on in place.? This was appropriately secured and had excellent visualization with the Ronen robot.? Next the tibial checkpoint as well as femur checkpoint were then placed.? At this point time I then subsequently established my head center as well as my medial?lateral malleoli as well as my checkpoints.? Next utilizing standard Ronen technology I then mapped out the appropriate points and confirmation points around the femur as well as the tibia in standard fashion.? Once this was then done I then removed all osteophytes in preparation for dynamic testing.? All osteophytes were removed as well as I removed the ACL and the PCL was excised due to its significant tearing and degeneration noted.? At this point time the knee was brought into full extension and we performed our standard evaluation of our gap balancing stressing his?ligaments and extension as well as flexion appropriate adjustments were made to have appropriate gap balancing in both flexion and extension.? This plan for final cuts were made to correct patient's deformity to patient's ligamentous tolerances. We get a preoperative plan evaluating our implants which was a size 5 femur and a size 4 tibia.? Next we brought in the Ronen robot and sequentially made our femur cuts.? All excess bony cuts were then removed.? Finally we made our tibial cut.? Once this was done a standard PCL retractor was then placed into this position I excised the medial and?lateral meniscus.? The tibial cut was then subsequently removed all excess bony debris was removed.? I then utilized a?lamina furnace cleaner and remove the posterior osteophytes.? At this point time sized the tibia and confirmed this was a size 4.? I utilized our blunt probe to establish rotation of tibial implant.? Once this was done I then placed my tibia size 4 trial in appropriate position and then subsequently placed tibial pins to hold this into place and trialed up to a size 9 mm poly as well as a size 5 femur which was appropriately impacted in place knee was then subsequently brought into extension. Trials were then assessed,? this was stable with varus valgus stress in extension as well as had symmetrical translation when brought into flexion demonstrating symmetrical gaps. I had excellent balance gaps in flexion and extension with varus and valgus stresses.? At this point I was satisfied with these implants these were then verified and opened on the back table size 4tibia, size 5 femur,? size 9 mm polythickness.? We did confirm appropriate gap balancing and stresses as well as alignment utilizing? Ronen and were satisfied with this plan.? ?At this point time with my trials in place I then towel clip the patella everted this made appropriate measurements subsequently utilizing freehand technique performed by patellar resurfacing this was confirmed to be appropriate resection and subsequently sized to be a 33 mm symmetric.? My drill peg guides were then clamped and appropriate position and appropriate position in the patella for appropriate tracking and parallel with the joint.? Pegs were drilled trial implant was placed and the knee was then subsequently ranged and found to have excellent patellar tracking.? Femur pegs were then drilled.? At this point time all of our trial implants were removed.? All checkpoints as well as guidepins and arrays were removed and appropriate counts made.? Satisfied with our tibial placement rotation I then utilized the keel punch and prepped the tibia.? The wound bed? was thoroughly irrigated and dried and prepped for cementation.? Cement was mixed on the back table.? Once cement was ready this was then covered onto the tibia and the tibial baseplate was then impacted and all excess cement was removed.? Next the polyethylene was then impacted into place on the tibial baseplate.? Next cement was placed onto the femur as well as under the femur implants and impacted in to place and all excess cement was extruded and removed.? Knee was taken into full extension? to clear all excess cement was removed.? Warm saline was placed over the joint.? I then towel clip patella and dried for cementation. cemented the patella into place.? This was all clamped and the cement was allowed to cure.? Thorough irrigation performed with pulse?lavage.? I then placed my periarticular injection while the cement was curing.? Once cured the knee was taken through range of motion and had excellent stability and gaps were balanced in flexion and extension.? Tourniquet was then deflated. hemostasis satisfactory with electrocautery.? Next I then subsequently closed the capsule with Ethibond suture as well as a running strata fix suture.? Knee was then taken through range of motion 30 times.? Next the skin was then closed in?layered fashion of running stratifix sutures of deep and subcutenous tissue and skin.? Closed in flexion skin was closed with lurdes, incision was covered with Silverlon, with ABDs soft roll and Regan wrap.? Patient was then awakened from anesthesia and taken to PACU in stable condition. Disposition: Patient taken to PACU in stable condition will be admitted to the floor for pain control PT/OT weight-bear as tolerated?Right?lower extremity dressing changes as needed, DVT prophylaxis. Pain control. Patient will receive appropriate postoperative antibiotics. Patient will follow up with the office in 2 weeks.? Patient understands agrees with current plan.? All questions answered.
--- NOTE | 2025-08-16 18:25 | XRR_ITS ---
PROCEDURE INFORMATION: Exam: XR Right Knee Exam date and time: 08/16/2025 7:33 PM Age: 60 years old Clinical indication: Screening exam; Post op; Prior surgery; Surgery date: Post-operative (0-2 days); Surgery type: Tka; Additional info: Status post right total knee arthroplasty TECHNIQUE: Imaging protocol: Radiologic exam of the right knee. Views: 3 views. COMPARISON: CT knee RT [facility] [id number] 08/10/2025 8:45 AM FINDINGS: Bones/joints: There is a total knee arthroplasty prosthesis in place. There is air within the knee joint. The femoral and tibial components of the prosthesis are well aligned. Soft tissues: Normal. XR/XR knee RT 3V* [id number] IMPRESSION: Postoperative total knee arthroplasty. There is air within the knee joint.
--- NOTE | 2025-08-16 19:32 | ANE.PACU2 ---
Inpatient post-anesthesia follow up: Airway intact: Yes Vital signs: Temperature 97.4 F Pulse Rate 66 Respiratory Rate 16 Blood Pressure 101/60 Pulse Oximetry 96 Oxygen Delivery Me thod Room Air Oxygen Flow Rate 8 Fraction of Inspir ed Oxygen Hydration adequate: Yes Nausea and vomiting: No Pain level: 1 Mental status: Baseline
[2025-08-16] MEDS: oxyCODONE 5 mg IR Tab/Cap PO (19:56)
[2025-08-16] MEDS: artificial tears Op Oint 3.5 gm 1 APPLIC EYE-RIGHT (20:18)
[2025-08-16] MEDS: ondansetron 2 mg/ML SDV 2 mL 4 MG IVP (22:18)
[2025-08-17] VITALS (11 sets, daily range): BP systolic 104–139; BP diastolic 51–78; PULSE 58–78; RESP 14–18; TEMP 36.6; O2SAT 96–100
[2025-08-17] MEDS: ceFAZolin 2,000 MG in sodium chloride 0.9% (plus) 50 ML 100 MG IV ×3 (00:06→15:36)
[2025-08-17] MEDS: chlorhexidine gluconate 0.12% Btl 473 mL 30 ML MUCOUS MEM ×3 (00:06→10:37)
[2025-08-17] MEDS: tranexamic acid 1,000 MG/100 ML PREMIX 600 MG IV (01:31)
[2025-08-17] MEDS: oxyCODONE 5 mg IR Tab/Cap PO ×4 (01:35→15:41)
[2025-08-17] MEDS: multivitamin therapeutic Tablet 1 TAB PO (05:44)
[2025-08-17] MEDS: calcium carb-vit d 600mg/400unit 1 Tablet 1 EACH PO (05:44)
[2025-08-17] MEDS: sennosides-docusate Tablet 2 TAB PO (05:44)
[2025-08-17] MEDS: mupirocin oint 22 gm 1 APPLIC NASAL (05:45)
[2025-08-17] MEDS: acetaminophen 1,000 MG/100 ML PIGGYBACK 400 MG IV ×2 (05:46→14:49)
[2025-08-17 06:42] LABS: Hematocrit 34.8 % (37-53); Hemoglobin 12.10 g/dL (11.27-16.99); Mean Corpuscular HGB Conc 34.8 g/dL (30-55); Mean Corpuscular Hemoglobin 30.6 pg (27-33); Mean Corpuscular Volume 88.1 fl (82-101); Nucleated Red Blood Cells % 0 %; Platelet Count 202 10^3/cmm (157-399); Red Blood Count 3.95 10^6/uL (3.85-5.65); White Blood Count 11.61 10^3/uL (3.29-11.43)
[2025-08-17 07:00] LABS: Anion Gap 14.6 (5-19); Blood Urea Nitrogen 31 mg/dL (8-23); Calcium 8.6 mg/dL (8.5-10.5); Carbon Dioxide 23 mmol/L (22-29); Chloride 105 mmol/L (98-107); Glucose 241 mg/dL (65-115); Osmolality Calculated 302 mOsm/kg (285-295); Potassium 3.6 mmol/L (3.5-5.1); Sodium 139 mmol/L (136-145)
--- NOTE | 2025-08-17 09:30 | PC.OT ---
Pt seen from 09:15 to 9:21 am sitting in chair at bedside. Pt is A+OX3 and reports a little bit of pain in R LE. Pt independently dons and doffs socks on bilateral LE. Pt declines to perform ADLs. No OT indicated.
[2025-08-17] MEDS: APIXABAN 2.5 MG TABLET PO (11:03)
--- NOTE | 2025-08-17 13:33 | P.CONIM_ITS ---
Providers/Reason For Consult 2 Consulting Physician/Specialty*: Orthopedic Surgery. Dr. Lizarraga. Reason for Consult*: Evaluaton for acute kidney injury. Requesting Physician: Dr. Hiren Lizarraga DO Attending Physician: Hiren Lizarraga DO Primary Care Provider: Flako Flower History of Present Illness History of Present Illness Jayce Garg is a 60 year old male with HTN, CKD 3A, dyslipidemia, lumbar disc disease and chronic severe right knee degenerative joint disease. He has failed conservative treatment options and now elected to proceed with surgical management. He underwent a right Meng robotic assisted cemented total knee arthroplasty performed by Dr. Hiren Lizarraga on 08/16/2025. Procedure proceeded as planned without intraoperative complications. Intraoperative EBL 25 to 50 mL. Hospitalist service consulted for evaluation of acute kidney injury. Patient seen today for post-operative evaluation following knee surgery yesterday. Patient has a history of chronic kidney disease with baseline creatinine of 1.2-1.4 since at least 2020. He was previously evaluated by a salvage engineering technician in [facility]. Notes a brother who is a surgeon who has also been monitoring his renal function. Reports previously taking Aleve, but denies any recent NSAID use. Denies urinary symptoms and decrease in urine output. Previously on BP pills, however has been off for several months after having initiated an exercise routine and lost weight. Home BP runs 125-130/80-85. Denies history of diabetes. Keep self adequtely hydrated Record reviewed Labs 08/17/2025 0630 Hemogram WBC 11.61 RBC 3.95 PLT 202 HGB 12.10 HCT 34.8 Chemistry Na 139 K3.6 Cl 105 Ca 8.6 Glu 241 CO2 23 AG 14.6 BUN 31 Cr 1.4 eGFR 51.7 VSS XR Knee. Bones/joints: There is a total knee arthroplasty prosthesis in place. There is air within the knee joint. The femoral and tibial components of the prosthesis are well aligned. Soft tissues: Normal. Acute kidney injury. Review of Systems 2 General: Reports: 10 or more systems reviewed and unremarkable except in HPI and below Medications/Allergies Home Medications ?Medication ?Instructions ?Recorded ?Confirmed ?Last Taken ?Type fenofibrate nanocrystallized 145 145 mg PO DAILY 90 da ys #90 tabs 08/13/25 08/15/25 08/15/25 Rx mg tablet (Tricor) oxycodone 5 mg tablet 5 mg PO Q6H PRN pain postop 7 days 08/17/25 Unknown Rx #28 tabs Allergies Allergy/AdvReac Type Severity Reaction Status Date / Time Iodinated Contrast Media Allergy Severe Burning, Verified 08/15/25 08:56 vomiting, and heart rate increase Current Medications Generic Name Dose Route Start Last Admin Trade Name Freq PRN Reason Stop Dose Admin Apixaban 2.5 mg 08/17/25 09:00 08/17/25 11:03 Apixaban 2.5 Mg Tablet PO 2.5 mg BID@0900,2100 JENNIFER Administration Artificial Tears 1 applic 08/16/25 19:00 08/17/25 08:12 Artificial Tears Op Oint 3.5 Gm EYE-RIGHT Not Given BEDTIME [facility] Calcium Carbonate 1 each 08/17/25 05:00 08/17/25 05:44 Calcium Carb-Vit D 600mg/400unit 1 Tablet PO 1 each BID JENNIFER Administration Chlorhexidine Gluconate 30 ml 08/16/25 23:00 08/17/25 10:37 Chlorhexidine Gluconate 0.12% Btl 473 Ml MUCOUS MEM 30 ml QID JENNIFER Administration Lactated Ringer's 1,000 mls @ 100 mls/hr 08/16/25 19:01 08/17/25 01:35 Lactated Ringers IV 100 mls/hr .Q10H JENNIFER Administration Acetaminophen 1,000 mg in 100 mls @ 400 mls/hr 08/16/25 22:00 08/17/25 05:46 Acetaminophen IV 08/17/25 14:14 400 mls/hr Q8H JENNIFER Administration Cefazolin Sodium 2,000 mg/ 50 mls @ 100 mls/hr 08/17/25 00:01 08/17/25 08:25 Sodium Chloride IV 08/17/25 16:30 100 mls/hr Q8H JENNIFER Administration Protocol Ketorolac Tromethamine 15 mg 08/16/25 19:01 08/17/25 08:25 Ketorolac 30 Mg/Ml Inj IVP 15 mg Q6H PRN Administration MODERATE TO SEVERE PAIN Multivitamins Therapeutic 1 tab 08/17/25 05:00 08/17/25 05:44 Multivitamin Therapeutic Tablet PO 1 tab DAILY JENNIFER Administration Mupirocin 1 applic 08/17/25 05:00 08/17/25 05:45 Mupirocin Oint 22 Gm NASAL 08/22/25 04:59 1 applic BID JENNIFER Administration Protocol Ondansetron HCl 4 mg 08/16/25 19:01 08/16/25 22:18 Ondansetron 2 Mg/Ml Sdv 2 Ml IVP 4 mg Q6H PRN Administration NAUSEA AND VOMITING Oxycodone HCl 5 mg 08/16/25 19:01 08/17/25 10:36 Oxycodone 5 Mg Ir Tab/Cap PO 5 mg Q4H PRN Administration MODERATE PAIN Polysaccharide Iron Complex 150 mg 08/17/25 08:00 08/17/25 08:25 Iron Polysaccharide Complex 150 Mg Capsule PO 150 mg BIDWM JENNIFER Administration Senna/Docusate Sodium 2 tab 08/17/25 05:00 08/17/25 05:44 Sennosides-Docusate Tablet PO 2 tab BID JENNIFER Administration PFSH Acute 2 PFSH: Medical History (Updated 08/17/25 @ 14:38 by Malinda Lynch NP) Stage 3a chronic kidney disease (CKD) Erectile dysfunction, unspecified erectile dysfunction type Generalized osteoarthritis Right knee DJD Screen for colon cancer 03/2021, clear Hx of hyperlipidemia Surgical History Hx of knee surgery left Hx of tonsillectomy Family History Mother Cancer Father Diabetes Social History Smoking and tobacco/nicotine status: never used tobacco/nicotine Second hand smoke exposure: No Alcohol intake: never Substance/Drug Use: never Adopted: No Caregiver/support person: No Lives independently: Yes Household members: spouse Housing: House Marital status: Number of children: 7 Highest education level completed: Associate Degree: Academic Program service: Yes Current occupational status: employed Pets and animals: No Current gender identity: Male Vitals/I&O/Wt Last Vital Signs Temp 97.9 F 08/17/25 09:50 Pulse 58 L 08/17/25 09:50 Resp 18 08/17/25 10:36 BP 139/71 08/17/25 09:50 Pulse Ox 100 08/17/25 10:36 O2 Del Method Room Air 12/05/25 09:50 O2 Flow Rate 8 08/16/25 18:33 08/16/25 08/17/25 08/17/25 22:59 06:59 14:59 Intake Total 650 / 650 428.333 / 1078.333 Output Total 125 / 125 1800 / 1925 200 / 200 Balance 525 / 525 -1371.667 / -846.667 -200 / -200 Weight last 48 hrs Weight 73.482 kg Weight 73.482 kg Physical Exam 2 Narrative: Constitutional: NAD Neurorogic: Awake and alert. Oriented x3. No facial asymmetry, unilateral weakness or speech deficits. Head NC/AT Eyes PERRLA. EOMI. Sclera anicteric. ENT Normal external ears. Hearing intact to normal voice. Normal external nose. No epistaxis. MMM. Respiratory CTAB. No accessory muscle use. On room air. Heart / CV Regular. No murmur. Extremities Trace RLE edema Abdomen / GI Soft. NT. ND. +BS Genitourinary No sandoval catheter Musculoskeletal Right knee in surgical wrapping with ice pack on top Urinary Catheter Management: Sandoval: Cath Placed During This Visit: yes, but has since been removed by the nurse Reason for Continuing Indwelling Catheter: Decision to DC Catheter Urinary Catheter Date of Insertion: 08/16/25 Date Urinary Catheter Removed: 08/17/25 Time Urinary Catheter Discontinued: 08:00 Data 08/17/25 06:30 08/17/25 06:30 Other Labs: I have personally reviewed below listed labs that were done in ED on presentation. Labs 08/17/2025 0630 Hemogram WBC 11.61 RBC 3.95 PLT 202 HGB 12.10 HCT 34.8 Chemistry Na 139 K3.6 Cl 105 Ca 8.6 Glu 241 CO2 23 AG 14.6 BUN 31 Cr 1.4 eGFR 51.7 A&P Assessment and plan 1. Right knee DJD: 2. Stage 3a chronic kidney disease (CKD): 3. Leukocytosis: 4. Normocytic anemia: 5. Essential hypertension: Plan: # Severe right knee DJD s/p right Meng robotic assisted cemented total knee arthroplasty performed by Dr. Hiren Lizarraga on 08/16/2025 - Management per ortho surgery # CKD 3 Baseline Cr 1.2-1.4 since 2020 - This patient does not have SERENITY - Renal function at baseline - Optimize renal precautions Avoid hypotension, maintain MAP >/ 65 Renally dose meds and avoid nephrotoxic meds (ACEi/ARB, NSAIDs, contrast, etc.) Discontinue toradol # Leukocytosis WBC 6.18 -> 11.61 Expected postoperative response, continue trending # Normocytic Anemia Baseline HGB 14 g/dL range. HGB trend 14.9 (07/27/25) -> 16.8 (08/16/25) -> 12.10 (08/17/25) EBL ~ 25-50 ml intraoperatively - Down trending, monitor # HTN No longer on BP meds. Controlled Patient stable for discharge today from hospital medicine standpoint PDMP PDMP Reviewed: Not Reviewed Consult Attestations 2 Medical Necessity Statement: Hospitalist service consulted to evaluate patient's abnormal renal function following recent surgical care. Evaluation medically necessary to assist in determining prognosis and address associated symptoms and ensure appropriate plan of care. Coding Level of Care Code 98228 Diagnoses Right knee DJD M17.11 Stage 3a chronic kidney disease (CKD) N18.31 Leukocytosis D72.829 Normocytic anemia D64.9 Essential hypertension I10
--- NOTE | 2025-08-17 14:41 | P.DS_ITS ---
Discharge Providers Date of Admission: 08/16/25 18:29 Date of Discharge: August 17, 2025 Attending Provider at Admission: Hiren Lizarraga DO Attending Provider at Discharge: Hiren Lizarraga DO Consults: Hospitalist Primary Care Provider: Flako Flower Diagnoses at Discharge Discharge Diagnosis 1. Status post total right knee replacement: 2. Stage 3a chronic kidney disease (CKD): 3. Leukocytosis: 4. Normocytic anemia: 5. Essential hypertension: Reason for Visit Reason for Visit: M17.11 Brief History: Status post right total knee arthroplasty?Meng robotic assisted Hospital Course Hospital Course Patient presented to the preoperative holding area with plan for right total knee arthroplasty after patient has been worked up in the outpatient setting for failed conservative treatment of [right] knee degenerative joint disease. Once cleared by anesthesia for surgery patient subsequently was taken back to the operative suite underwent anesthesia per anesthesia department and then subsequently underwent a [right] total knee arthroplasty. Procedure was performed without any complications patient was taken to PACU in stable condition patient recovered well in PACU and then was admitted to the floor postoperatively. Patient received appropriate PT/OT, postoperative antibiotics, postoperative TXA, pain control, postoperative DVT prophylaxis. Elevation and ice. Patient encouraged for knee range of motion allowed weightbearing as tolerated to the operative lower extremity. Dressing was changed as needed, labs were monitored daily. Patient recovered well postoperatively and worked well and progressed well with therapy. Patient did have a bump on his postoperative day 1 with his a.m. labs and his creatinine does have some chronic kidney disease. Internal medicine was consulted and on board for medical management and assistance with care. It was deemed he was still within his normal baseline kidney function range and was deemed stable for discharge from their standpoint. He progressed appropriately throughout his hospitalization particular with therapy. It was determined on postoperative day [ 1] the patient was stable for discharge from an orthopedic standpoint and medicine. Patient was comfortable with discharge and plan was discharged home. Patient received appropriate discharge instructions as well as pain medication and DVT prophylaxis postoperatively. Given appropriate instructions for dressing management. Patient will follow-up with Dr. Lizarraga/orthopedics in the office in 2 weeks. All questions answered. Understand if there is any issues questions or concerns and contact the office. Physical Exam Narrative: Right knee examination: Dressing on in place, clean dry and intact. No evidence of saturation. Patient has normal postoperative swelling and tenderness to palpation to the knee. Compartments are soft compressible,'s calf soft and nontender. Sensations intact to light touch distally. Distal pulses are palpable. Patient is able to wiggle toes as well as plantarflex and dorsiflex ankle. Urinary Catheter Management: Thomas: Cath Placed During This Visit: yes, but has since been removed by the nurse Reason for Continuing Indwelling Catheter: Decision to DC Catheter Urinary Catheter Date of Insertion: 08/16/25 Date Urinary Catheter Removed: 08/17/25 Time Urinary Catheter Discontinued: 08:00 Discharge Data Studies Completed and Pending Completed Studies During Hospitalization Category Date Time Status XR knee RT 3V* [id number] Routine Exams 08/16/25 18:25 Completed Pending at discharge Category Date Time Status Basic Metabolic Panel AM LABS Lab 08/18/25 04:00 Ordered Basic Metabolic Panel AM LABS Lab 08/19/25 04:00 Ordered Complete Blood Count w/Auto AM LABS Lab 08/18/25 04:00 Ordered Complete Blood Count w/Auto AM LABS Lab 08/19/25 04:00 Ordered Radiology Impressions Knee X-Ray 08/16/25 18:25 IMPRESSION: Postoperative total knee arthroplasty. There is air within the knee joint. Laboratory Results WBC 11.61 10^3/uL (3.29-11.43) H 08/17/25 06:30 RBC 3.95 10^6/uL (3.85-5.65) 08/17/25 06:30 Hgb 12.10 g/dL (11.27-16.99) 08/17/25 06:30 Hct 34.8 % (37-53) L 08/17/25 06:30 MCV 88.1 fl (82-101) 08/17/25 06:30 MCH 30.6 pg (27-33) 08/17/25 06:30 MCHC 34.8 g/dL (30-55) 08/17/25 06:30 RDW 12.5 % (12.1-15.1) 08/17/25 06:30 Plt Count 202 10^3/cmm (157-399) 08/17/25 06:30 MPV 10.0 fL (7.4-10.4) 08/17/25 06:30 Neut % (Auto) 86.1 % 08/17/25 06:30 Lymph % (Auto) 8.1 % 08/17/25 06:30 Todd % (Auto) 5.3 % 08/17/25 06:30 Eos % (Auto) 0.0 % 08/17/25 06:30 Baso % (Auto) 0.1 % 08/17/25 06:30 Neut # (Auto) 10.00 10^3/uL (1.8-7.7) H 08/17/25 06:30 Lymph # (Auto) 0.9 10^3/uL (0.8-4.8) 08/17/25 06:30 Todd # (Auto) 0.6 10^3/uL (0.2-0.9) 08/17/25 06:30 Eos # (Auto) 0.0 10^3/uL (0.0-0.8) 08/17/25 06:30 Baso # (Auto) 0.0 10^3/uL (0.0-0.1) 08/17/25 06:30 Nucleated RBC % (auto) 0 % 08/17/25 06:30 Nucleated RBCs # 0.0 /100WBC 08/17/25 06:30 Sodium 139 mmol/L (136-145) 08/17/25 06:30 Potassium 3.6 mmol/L (3.5-5.1) 08/17/25 06:30 Chloride 105 mmol/L (98-107) 08/17/25 06:30 Carbon Dioxide 23 mmol/L (22-29) 08/17/25 06:30 Anion Gap 14.6 (5-19) 08/17/25 06:30 BUN 31 mg/dL (8-23) H 08/17/25 06:30 Creatinine 1.4 mg/dL (0.7-1.2) H 08/17/25 06:30 GFR Calculation 51.7 mL/min (90-130) L 08/17/25 06:30 Glucose 241 mg/dL (65-115) H 08/17/25 06:30 Calculated Osmolality 302 mOsm/kg (285-295) H 08/17/25 06:30 Calcium 8.6 mg/dL (8.5-10.5) 08/17/25 06:30 Blood Type O Positive 08/16/25 15:20 Rho(D) Type Rh positive 08/16/25 15:20 Antibody Screen Negative 08/16/25 15:20 Vitals Last Vital Signs Temp 97.9 F 08/17/25 09:50 Pulse 58 L 08/17/25 09:50 Resp 18 08/17/25 10:36 BP 139/71 08/17/25 09:50 Pulse Ox 100 08/17/25 10:36 O2 Del Method Room Air 08/17/25 09:50 O2 Flow Rate 8 08/16/25 18:33 Discharge Plan Discharge Patient Disposition: Home Condition: Stable Prescriptions: New Eliquis 2.5 mg tablet 2.5 mg PO BID 14 Days Qty: 28 0RF methocarbamol 500 mg tablet 500 mg PO TID PRN (Reason: muscle spasms/pain) 14 Days Qty: 42 0RF cefadroxil 500 mg capsule 500 mg PO BID 7 Days Qty: 14 0RF calcium carbonate-vitamin D3 [Calcium 600 + D(3)] 600 mg-10 mcg (400 unit) tablet 1 tab PO DAILY 30 Days Qty: 30 0RF Continued fenofibrate nanocrystallized [Tricor] 145 mg tablet 145 mg PO DAILY 90 Days Qty: 90 3RF No Action oxycodone 5 mg tablet 5 mg PO Q6H PRN (Reason: pain postop) 7 Days Qty: 28 0RF Editor Producer OK for DC: Orthopedics Discharge Order = DC NOW: Discharge Order (Routine); Ordered 08/17/25 Ordered By: Hiren Lizarraga Other Ambulatory Orders: DME: Walker (Order) Location: None Selected Ordered By: Hiren Lizarraga Physical Therapy Eval and Treat Outpatient (Order) Timeframe: 1 Day Facility: [facility] - Location: Physical Therapy [place] Ordered By: Hiren Lizarraga Referrals: Hiren Lizarraga DO [Physician, Orthopedics] - 08/31/25 9:45 am Discharge Diet: Regular Discharge Activity: Limit activity as instructed and Use walker/crutches as instructed Patient Instructions: Acute Wound Care (DC), Precautions after Total Joint Replacement Surgery (GEN), Total Knee Replacement (GEN), Opioid Safety, Post Anesthesia Care, Patient Portal & Cherie Instructions Activity Restrictions/Additional Instructions: Orthopedic discharge instructions: Patient may remove Regan bandage and cotton dressing on Wednesday (72 hours after surgery) Wrap Silverlon bandage and Saran wrap to keep from getting wet and okay to shower after the 3 days Leave Silverlon bandage dressings on in place for 7 days after that may rinse incisions with warm soapy water pat dry and redress with a new Silverlon dres sing Strict no baths or soaks keep incisions clean dry and intact Patient may weight-bear as tolerate to the operative extremity Utilize walker as needed Encourage knee range of motion Ice and elevate as needed for pain and swelling (recommend alternating icing for 20 minutes every 2 hours) Take pain medication as prescribed Take antinausea medication as needed Pain medication can cause constipation. take [id number] stool softeners and or MiraLAX. Recommend avoiding ibuprofen/Motrin or any other NSAIDs so this does not affect your kidneys Follow-up with your primary care provider in 3 to 7 days Take prescribed Eliquis twice daily for the next 14 days for blood clot prevention May supplement for pain with Tylenol [id number] as needed(1000 mg every 8 hours-do not exceed more than 3000mg in 24-hour period) No baths or soaks Follow-up in the orthopedic office in 2 weeks Contact the office for any questions or concerns Discharge Attestations Time Spent in Discharge Care*: less than 30 min Quality Metrics Clinical Quality Measures [ No reported AMI, CVA or VTE this stay] Coding Level of Care Code Acute Code for Chg Fwd Diagnoses Status post total right knee replacement Z96.651 Stage 3a chronic kidney disease (CKD) N18.31 Leukocytosis D72.829 Normocytic anemia D64.9 Essential hypertension I10 Time Spent (min) 25
--- NOTE | 2025-08-18 05:12 | PC.NURSE ---
On 08/16/25 beginning at 2210 this RN responded to this patents call light, the patient was complaining of nausea so this RN cycled the blood pressure and went to pull the ordered PRN zofran. After giving the zofran this RN educated the patient on slowing his respiration rate and taking slow deep breaths. The blood pressure ran again and the patient was still symptomatic with a low blood pressure so at this time this RN went to consult with the charge nurse. 2230-after consulting with the charge nurse on who to call this RN placed a call to the stranding machine operator helper to be transferred to the hospitalist, the hospitalist was not reached at this time. 2242-Another call was placed to the stranding machine operator helper to call the hospitalist, while on hold the patient hit his call light again so this RN ended the call to answer it. 2244-This RN placed a call back to the stranding machine operator helper and explained why the call was disconnected, the hospitalist was not reached at this time. 2247-This call placed to the hospitalist was answered but was ended unexpectedly. 2249- call was placed back due to the call being ended, at this time this RN explained the Patient and situation to the hospitalist. the hospitalist stated since the surgeon had not ordered a consult you will have to contact the patients surgeon this RN then called the stranding machine operator helper to be transferred to Dr. Lizarraga. The stranding machine operator helper tried multiple times to reach Dr. Lizarraga will this RN was on hold. This RN consulted with the charge nurse on the unit about the patents blood pressure and still being symptomatic, after discussion the rate was turned up to 999ml/hr on the preexisting fluids that were already running on the patient for approximately 350ml. 2256- this RN was informed by the stranding machine operator helper that was not art objects salesperson or answering so would have to be contacted since she was the surgeon art objects salesperson, this was also clarified by the household cook. 2303- this RN was transferred to and gave report on the patent and what was going on at this time along with vitals and the bolus of fluids being started. Dr. Lua okayed all of this information and gave no new orders at this time, Dr. Lua stated that she will put in an order for the hospitalist to consult with the patient this was due to the patients sudden decrease in blood pressure and new onset pain in his neck and hip that occurred at the time of the blood pressure fluctuation.
== END 2025-08-17 16:15 | disposition home or self-care (01) ==
LOC: OBGYN 18:30
PROVIDERS: Physician Assistant; Admitting Provider Student in an Organized Health Care Education/Training Program; PCP Clinical Nurse Specialist Adult Health; Visit Provider Student in an Organized Health Care Education/Training Program
PROC: 8E0Y0CZ Robotic Assisted Procedure of Lower Extremity, Open Approach (ICD-10-PCS; CPT 27447; principal; 2025-08-16 13:50)
DX: M17.11 Unilateral primary osteoarthritis, right knee (principal); I12.9 Hypertensive chronic kidney disease with stage 1 through stage 4 chronic kidney disease, or unspecified chronic kidney disease; N18.31 Chronic kidney disease, stage 3a; E78.5 Hyperlipidemia, unspecified; Z79.891 Long term (current) use of opiate analgesic; D64.9 Anemia, unspecified; D72.829 Elevated white blood cell count, unspecified
CPT/HCPCS: 27447; 20985; 36415; 73562; 80048; 85025; 86850; 86900; 97110; 97116; 97161; A4216; C1713; C1776; G0378; J0131; J0169; J0690; J1885; J2250; J2405; J2704; J2795; J3010; J7120; J9999; L8699

== ENCOUNTER → 2025-08-31 09:50 | Outpatient (BNVA) | payer OTHER, SELFPAY | PROVIDERS: PCP Clinical Nurse Specialist Adult Health; Visit Provider Physician Assistant | DX: Z98.890 Other specified postprocedural states (principal); Z96.651 Presence of right artificial knee joint | CPT/HCPCS: 73560; 73565 ==

== ENCOUNTER 2025-08-31 11:04 | Emergency (ER) | payer OTHER, SELFPAY ==
[2025-08-31 11:05] VITALS: BP 115/68; PULSE 66; RESP 18; O2SAT 100
--- NOTE | 2025-08-31 11:11 | W.ED.GENADLT ---
HPI - General Adult General: Chief complaint: Syncope Stated complaint: Passed out Time Seen by Provider: 08/31/25 11:06 History of Present Illness: 60-year-old male presents to the emergency room after having a syncopal episode while at orthopedic clinic. He is having lurdes removed he found it quite painful and passed out a rapid response was called and is brought to the emergency room he denies any chest pain. He is awake and alert he remembers all the course of events. This was witnessed by family as well as staff. Associated symptoms: Deny chest pain, dyspnea or rash Related Data Previous Rx's ?Medication ?Instructions ?Recorded fenofibrate nanocrystallized 145 145 mg PO DAILY 90 days #90 tabs 08/13/25 mg tablet (Tricor) calcium 600 mg (as 1 tab PO DAILY Bone health and 08/17/25 carbonate)-vitamin D3 10 mcg (400 healing 30 days #30 tabs unit) tablet (Calcium 600 + D(3)) hydrocodone 7.5 mg-acetaminophen 1 tab PO Q6H PRN pain 5 days #20 08/31/25 325 mg tablet tabs Allergies Allergy/AdvReac Type Severity Reaction Status Date / Time Iodinated Contrast Media Allergy Severe Burning, Verified 08/31/25 10:06 vomiting, and heart rate increase Review of Systems Const: Denies: fever(s) or chills Card: Denies: chest pain Resp: Denies: dyspnea GI: Denies: abdominal pain : Denies: dysuria, urinary frequency or urinary urgency Musc: Denies: neck pain or back pain Skin/Breast: Denies: rash PFSH ED PFSH: Medical History Stage 3a chronic kidney disease (CKD) Erectile dysfunction, unspecified erectile dysfunction type Generalized osteoarthritis Right knee DJD Screen for colon cancer 03/2021, clear Hx of hyperlipidemia Surgical History Hx of knee surgery left Hx of tonsillectomy Family History Mother Cancer Father Diabetes Social History Smoking and tobacco/nicotine status: never used tobacco/nicotine Second hand smoke exposure: No Alcohol intake: never Substance/Drug Use: never Adopted: No Caregiver/support person: No Lives independently: Yes Household members: spouse Housing: House Marital status: Number of children: 7 Highest education level completed: Associate Degree: Academic Program service: Yes Current occupational status: employed Pets and animals: No Current gender identity: Male Physical Exam Const: GENERAL APPEARANCE: cooperative ORIENTATION/CONSCIOUSNESS: Yes awake, Yes oriented to person, Yes oriented to place and Yes oriented to time HENMT: COMMON NORMALS: normocephalic, atraumatic and hearing grossly normal bilaterally HEAD & SCALP: normocephalic and atraumatic Resp: COMMON NORMALS: normal respiratory effort, No retractions, No use of accessory muscles and clear to auscultation bilaterally AUSCULTATION: clear to auscultation bilaterally Cardio: COMMON NORMALS: regular rate, regular rhythm and No murmurs present (Cardio) RATE: regular rate RHYTHM: regular rhythm GI: COMMON NORMALS: Soft to palpation and No hepatosplenomegaly present AUSCULTATION: Yes normoactive bowel sounds PALPATION: Yes Soft to palpation, No Tenderness to palpation present (GI), No Guarding due to palpation present (GI) and Yes No hepatosplenomegaly present Extremity: COMMON NORMALS: normal to inspection, capillary refill normal, no clubbing, cyanosis or edema, no calf tenderness and no pedal edema OTHER: Wound on the right leg from recent knee surgery [place] are removed wound healing well no redness no erythema no drainage no dehiscence Neuro: SENSORIUM/ORIENTATION: Yes oriented to person, Yes oriented to place and Yes oriented to time Skin: COMMON NORMALS: no rashes or lesions noted GENERAL SKIN EXAM: no rashes or lesions noted Course Vital Signs: Vital signs: Vital Signs Temperature 97.8 F 08/31/25 11:13 Pulse Rate 66 08/31/25 11:05 Respiratory Rate 18 08/31/25 11:05 Blood Pressure 115/68 08/31/25 11:05 Pulse Oximetry 100 08/31/25 11:05 Oxygen Delivery Me thod Room Air 08/31/25 11:05 MDM - General Adult Medical Decision Making Medical decision making Social determinants: None I reviewed the patient's medical record. I reviewed the patient's current home meds. Alternate historians: Family member Differential diagnosis: Vasovagal episode, acute coronary syndrome Lab Review: Labs reviewed CBC normal. Mild elevation of creatinine 1.4 which is chronic. AST 61 remainder of the LFTs are normal. Troponins negative Imaging:X-ray of the right knee done at the orthopedic clinic reviewed no acute findings arthroplasty hardware in good position no loosening Assessment of risk Level of risk: Low Hospitalization considerations: Evaluate for acute coronary syndrome Reexamination: No further symptoms patient reports feeling back to baseline Assessment and plan: Patient has chronic kidney disease and some risk factors for heart disease there is no sign of acute coronary syndrome at this episode. No signs of infection. Believe this was simply a vasovagal episode caused by discomfort when the lurdes are being removed will discharge patient home have him follow-up with his primary care doctor Lab Data 08/31/25 11:49 08/31/25 11:49 Laboratory Results WBC 8.13 10^3/uL (3.29-11.43) 08/31/25 11:49 RBC 4.57 10^6/uL (3.85-5.65) 08/31/25 11:49 Hgb 13.60 g/dL (11.27-16.99) 08/31/25 11:49 Hct 40.6 % (37-53) 08/31/25 11:49 MCV 88.8 fl (82-101) 08/31/25 11:49 MCH 29.8 pg (27-33) 08/31/25 11:49 MCHC 33.5 g/dL (30-55) 08/31/25 11:49 RDW 12.4 % (12.1-15.1) 08/31/25 11:49 Plt Count 335 10^3/cmm (157-399) 08/31/25 11:49 MPV 9.2 fL (7.4-10.4) 08/31/25 11:49 Neut % (Auto) 72.3 % 08/31/25 11:49 Lymph % (Auto) 20.2 % 08/31/25 11:49 Woods % (Auto) 5.5 % 08/31/25 11:49 Eos % (Auto) 1.1 % 08/31/25 11:49 Baso % (Auto) 0.5 % 08/31/25 11:49 Neut # (Auto) 5.88 10^3/uL (1.8-7.7) 08/31/25 11:49 Lymph # (Auto) 1.6 10^3/uL (0.8-4.8) 08/31/25 11:49 Woods # (Auto) 0.5 10^3/uL (0.2-0.9) 08/31/25 11:49 Eos # (Auto) 0.1 10^3/uL (0.0-0.8) 08/31/25 11:49 Baso # (Auto) 0.0 10^3/uL (0.0-0.1) 08/31/25 11:49 Nucleated RBC % (auto) 0 % 08/31/25 11:49 Nucleated RBCs # 0.0 /100WBC 08/31/25 11:49 Sodium 139 mmol/L (136-145) 08/31/25 11:49 Potassium 3.8 mmol/L (3.5-5.1) 08/31/25 11:49 Chloride 100 mmol/L (98-107) 08/31/25 11:49 Carbon Dioxide 25 mmol/L (22-29) 08/31/25 11:49 Anion Gap 17.8 (5-19) 08/31/25 11:49 BUN 30 mg/dL (8-23) H 08/31/25 11:49 Creatinine 1.4 mg/dL (0.7-1.2) H 08/31/25 11:49 GFR Calculation 51.7 mL/min (90-130) L 08/31/25 11:49 Glucose 112 mg/dL (65-115) 08/31/25 11:49 Calculated Osmolality 295 mOsm/kg (285-295) 08/31/25 11:49 Calcium 10.2 mg/dL (8.5-10.5) 08/31/25 11:49 Total Bilirubin 0.3 mg/dL (0.15-1.2) 08/31/25 11:49 AST 61 U/L (0-40) H 08/31/25 11:49 ALT 13 U/L (0-41) 08/31/25 11:49 Alkaline Phosphatase 86 U/L (40-130) 08/31/25 11:49 Troponin T Baseline 8 ng/L (0-15) 08/31/25 11:49 Troponin T 60 Minute 7.89 ng/L (0-15) 08/31/25 12:53 Delta Troponin T -0.11 ABS# (0-10) L 08/31/25 12:53 Total Protein 6.4 g/dL (6.6-8.7) L 08/31/25 11:49 Albumin 4.3 g/dL (3.5-5.2) 08/31/25 11:49 Globulin 2.1 g/dL (1.3-4.6) 08/31/25 11:49 Urine Color Yellow (Yellow) 08/31/25 11:38 Urine Appearance Cloudy (CLEAR) A 08/31/25 11:38 Urine pH 7.0 (5-7) 08/31/25 11:38 Ur Specific [place] 1.018 (1.005-1.030) 08/31/25 11:38 Urine Protein Negative (Negative) 08/31/25 11:38 Urine Glucose (UA) Negative (Normal) 08/31/25 11:38 Urine Ketones Negative (Negative) 08/31/25 11:38 Urine Blood Negative (Negative) 08/31/25 11:38 Urine Nitrate Negative (Negative) 08/31/25 11:38 Urine Bilirubin Negative (Negative) 08/31/25 11:38 Urine Urobilinogen 0.2 mg/dL (Negative) 08/31/25 11:38 Ur Leukocyte Esterase Negative (Negative) 08/31/25 11:38 Urine RBC 0-2 /hpf (0-2) 08/31/25 11:38 Urine WBC 0-5 /hpf (0-5) 08/31/25 11:38 Ur Squamous Epith Cells 0-5 /hpf (0-5) 08/31/25 11:38 Amorphous Sediment Not Reportable 08/31/25 11:38 Urine Bacteria None seen /hpf (NONE) 08/31/25 11:38 Hyaline Casts 2.46 /lpf 08/31/25 11:38 No radiology studies performed this visit EKG Data EKG 1: I personally reviewed and interpreted this EKG as follows: Interpretation: EKG 1219 2025-08-01. Sinus rhythm rate of 65. Addison 191 QTc [address] changes noted no previous EKGs available for comparison EKG 2: I personally reviewed and interpreted this EKG as follows: Interpretation: EKG 08/31/2025 1232 sinus rhythm rate of 72. Addison 151 QTc 437. No acute ST changes noted no ST elevation no change from EKG done earlier same day Discharge Plan Discharge Patient Disposition: Home Clinical Impression: Vasovagal syncope Condition: Stable Prescriptions: Discontinued hydrochlorothiazide 12.5 mg capsule 25 mg PO DAILY Qty: 60 2RF No Action fenofibrate nanocrystallized [Tricor] 145 mg tablet 145 mg PO DAILY 90 Days Qty: 90 3RF hydrocodone-acetaminophen 7.5-325 mg tablet 1 tab PO Q6H PRN (Reason: pain) 5 Days Qty: 20 0RF calcium carbonate-vitamin D3 [Calcium 600 + D(3)] 600 mg-10 mcg (400 unit) tablet 1 tab PO DAILY 30 Days Qty: 30 0RF Discharge Orders: Discharge ED (Routine); Ordered 08/31/25 Ordered By: Roni Candelario Referrals: Flako Flower, PANTOGRAPH TRANSFERRER [Primary Care Provider, Family Practice] Discharge Diet: Usual diet Discharge Activity: Resume usual activity Patient Instructions: Opioid Safety, Pain Management, Patient Portal & Cherie Instructions Activity Restrictions/Additional Instructions: Thank you for choosing [facility] for your healthcare needs today. It is very important that you follow up as instructed or that you return to the Emergency Department should you have concerns or if your condition changes or worsens in any way. Emergency department visits are focused on emergent conditions, in some cases you may require further evaluation on an outpatient basis. You were seen in the emergency room after a vasovagal episode (fainting). You are given IV fluids. Recommend you hold the hydrochlorothiazide and follow-up with your primary care doctor within the next week. (Please note that included in your discharge packet is information concerning opioid safety and pain management. This information is given to all patients were discharged from the ER regardless of their discharge diagnosis or the medicines they usually take or are prescribed.) Print Language: Lebanese Coding Level of Care Code ED Product Scientist for Susi Ngueyn
--- OUTSIDE RECORDS SUMMARY | 2025-08-31 11:12 | XMS_ITS | Clinical Summary ---
Author Organization [facility] Address [address] [place] [address] Phone Care Team Providers Care Habilitative Interventionist Name Role Phone Unavailable Primary Care Provider Unavailabl e Social History Tobacco Use Types Packs/Day Years Used Date Smoking Tobacco: Never Assessed Sex and Gender Information Value Date Recorded Sex Assigned at Not on file Legal Sex Male 1:17 PM CDT Gender Identity Not on file Sexual Orientation Not on file Plan of Treatment Health Maintenance Due Date Last Done Comments DTAP/TDAP/TD VACCINES (1 - Tdap) 1984 COLORECTAL SCREENING 2010 Colorectal Cancer Screening 2010 FIT-DNA Q 3 years 2010 FIT/FOBT Q 1 year 2010 Flex Sig/CT Colonography Q 5 years 2010 ZOSTER VACCINE (1 of 2) 2015 INFLUENZA VACCINE (#1) 2025 RSV VACCINE (60+ or ) (1 - 1-dose 75+ series) 2040 HEPATITIS B VACCINES Aged Out No long er eligible based on patient's age to complete this topic [facility]
[2025-08-31 11:13] VITALS: TEMP 36.6
--- NOTE | 2025-08-31 11:19 | ECG_ITS ---
[facility] Date: 2025-08-31 Pat Name: Jayce Garg Department: Room: Gender: Male Psychiatric Social Worker Supervisor: : 1965 Requested By: Roni Qiu Order Number: [id number] Reading MD: Measurements Intervals [place] Rate: 65 P: 43 ID: [id number] QRS: 51 QRSD: 92 T: 36 QT: 391 QTc: 407 Interpretive Statements SINUS RHYTHM [email or web address]
[2025-08-31 11:56] LABS: Glucose Urine UA Negative (Normal); Nitrate Urine Negative (Negative); Specific Gravity, Urine 1.018 (1.005-1.030)
[2025-08-31 12:01] LABS: Add Urine Microscopic? YES
[2025-08-31 12:03] LABS: Hematocrit 40.6 % (37-53); Hemoglobin 13.60 g/dL (11.27-16.99); Mean Corpuscular HGB Conc 33.5 g/dL (30-55); Mean Corpuscular Hemoglobin 29.8 pg (27-33); Mean Corpuscular Volume 88.8 fl (82-101); Nucleated Red Blood Cells % 0 %; Platelet Count 335 10^3/cmm (157-399); Red Blood Count 4.57 10^6/uL (3.85-5.65); White Blood Count 8.13 10^3/uL (3.29-11.43)
--- NOTE | 2025-08-31 12:11 | ECG_ITS ---
[facility]: 2025-08[facility]31 Pat Name: Jayce Garg Department: Room: Gender: Male Dietary Services Director: : 1965 Requested By: Roni Qiu Order Number: [id number] Reading MD: Measurements Intervals [place] Rate: 72 P: 38 CA: 151 QRS: 31 QRSD: 105 T: 28 QT: 399 QTc: 437 Interpretive Statements SINUS RHYTHM [email or web address]
[2025-08-31 12:22] LABS: Troponin(5th) Baseline 8 ng/L (0-15)
[2025-08-31 12:24] LABS: Alanine Aminotransferase 13 U/L (0-41); Albumin Level 4.3 g/dL (3.5-5.2); Alkaline Phosphatase 86 U/L (40-130); Blood Urea Nitrogen 30 mg/dL (8-23); Calcium 10.2 mg/dL (8.5-10.5); Carbon Dioxide 25 mmol/L (22-29); Chloride 100 mmol/L (98-107); Globulin 2.1 g/dL (1.3-4.6); Glucose 112 mg/dL (65-115); Osmolality Calculated 295 mOsm/kg (285-295); Sodium 139 mmol/L (136-145); Total Protein 6.4 g/dL (6.6-8.7)
[2025-08-31 12:25] LABS: Anion Gap 17.8 (5-19); Aspartate Amino Transferase 61 U/L (0-40); Potassium 3.8 mmol/L (3.5-5.1)
== END 2025-08-31 13:14 | disposition home or self-care (01) ==
PROVIDERS: Emergency Provider Family Medicine; PCP Clinical Nurse Specialist Adult Health
DX: R55 Syncope and collapse (principal); E78.5 Hyperlipidemia, unspecified; N18.31 Chronic kidney disease, stage 3a
CPT/HCPCS: 36415; 80053; 81001; 84484; 85025; 93005; 99284; J7030; J9999

== ENCOUNTER 2025-09-10 09:03 | Outpatient (RCR) | payer OTHER, SELFPAY | END 2025-09-12 23:59 | disposition home or self-care (01) | LOC: APT 09:03 | PROVIDERS: PCP Clinical Nurse Specialist Adult Health; Visit Provider Student in an Organized Health Care Education/Training Program | DX: M17.11 Unilateral primary osteoarthritis, right knee (principal) | CPT/HCPCS: 97110; 97161; 97530 ==